=== PATIENT | male | born 2000 | race Caucasian/White ===

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

== ENCOUNTER 2023-02-09 16:25 | Emergency (ER) | payer MEDICAID, OTHER ==
[~2023-02-09] VITALS: Ht 177.8 cm; Wt 60.8 kg
[2023-02-09 16:25] VITALS: BP 121/76; TEMP 98.2; O2SAT 95
[~2023-02-09 16:25] MED LIST changes: +MELA5CAP2 PO; +MIRT-88 PO; +NALT50TA4 PO; +ZOLO100T PO
== END 2023-02-09 20:16 | disposition left against medical advice (07) ==
LOC: M ED 16:25
DX: K62.5 Hemorrhage of anus and rectum (principal); Z53.9 Procedure and treatment not carried out, unspecified reason

== ENCOUNTER 2023-09-04 06:55 | Emergency (ER) | payer OTHER ==
[~2023-09-04] VITALS: Ht 180.3 cm; Wt 61.0 kg
[~2023-09-04 06:55] MED LIST changes: -SALI0.6530; +SODI88SP
[2023-09-04 06:56] VITALS: BP 113/60; TEMP 99.9; O2SAT 100
[2023-09-04] MEDS: ONDANSETRON 4MG ORAL DISINTEGRATING TAB PO ONE (08:28)
== END 2023-09-04 09:20 | disposition left against medical advice (07) ==
LOC: M ED 06:55
DX: R05.9 Cough, unspecified (principal); B34.9 Viral infection, unspecified; F90.9 Attention-deficit hyperactivity disorder, unspecified type; F17.210 Nicotine dependence, cigarettes, uncomplicated; Z53.9 Procedure and treatment not carried out, unspecified reason

== ENCOUNTER 2024-02-14 00:45 | Emergency (ER) | payer OTHER ==
[~2024-02-14] VITALS: Ht 175.3 cm; Wt 61.4 kg
[~2024-02-14 00:45] MED LIST changes: +ONDA-282 PO; -ONDA4TAB6 PO
[2024-02-14 01:08] VITALS: BP 138/79; TEMP 97.5; O2SAT 98
[2024-02-14 01:18] LABS: HEMATOCRIT 44.1 % (42.0-52.0); HEMOGLOBIN 15.5 g/dl (13.5-17.5); MEAN CORPUSCULAR HEMOGLOBIN 30.2 pg (27.0-33.0); MEAN CORPUSCULAR HGB CONC 35.1 g/dl (32.0-36.5); PLATELET COUNT, AUTOMATED 306 10^3/uL (150-450); RED BLOOD COUNT 5.13 10^6/uL (4.30-6.10); WHITE BLOOD COUNT 8.3 10^3/uL (4.0-10.0)
[2024-02-14 01:42] LABS: ETHYL ALCOHOL (ETHANOL) < 0.003 % (0.000-0.010)
[2024-02-14 01:44] LABS: ALBUMIN 4.7 G/DL (3.2-5.2); ALKALINE PHOSPHATASE 56 U/L (46-116); ALT/SGPT 18 U/L (7.0-40); AST/SGOT 19 U/L (<34); BILIRUBIN,DIRECT 0.3 MG/DL (<0.4); BILIRUBIN,TOTAL 0.8 MG/DL (0.3-1.2); BLOOD UREA NITROGEN 14 MG/DL (9-23); CARBON DIOXIDE LEVEL 26 MMOL/L (20-31); CHLORIDE LEVEL 107 MMOL/L (98-107); CREATININE FOR GFR 0.92 MG/DL (0.70-1.30); GLOMERULAR FILTRATION RATE > 60.0 (>60); GLUCOSE, FASTING 101 MG/DL (60-100); POTASSIUM SERUM 4.1 MMOL/L (3.5-5.1); SALICYLATE LEVEL < 3.0 MG/DL (<30); SODIUM LEVEL 139 MMOL/L (136-145); TOTAL PROTEIN 7.7 G/DL (5.7-8.2)
[2024-02-14 01:55] LABS: AMPHETAMINES LEVEL URINE NEGATIVE (NEGATIVE)
[2024-02-14 01:56] LABS: THYROID STIMULATING HORMONE 4.686 uIU/ML (0.55-4.78)
[2024-02-14] MEDS ORDERED: HOME MED LIST COMPLETE! XX SCH (02:30)
[2024-02-14 03:11] LABS: BARBITURATES URINE NEGATIVE (NEGATIVE); BENZODIAZEPINES URINE NEGATIVE (NEGATIVE); COCAINE METABOLITE URINE NEGATIVE (NEGATIVE); METHADONE URINE NEGATIVE (NEGATIVE); OPIATES URINE NEGATIVE (NEGATIVE); PHENCYCLIDINE URINE NEGATIVE (NEGATIVE)
[2024-02-14 03:17] LABS: CANNABINOIDS URINE POSITIVE (NEGATIVE)
[2024-02-14] MEDS: hydrOXYzine 50 MG TAB PO STA (03:50)
== END 2024-02-14 07:34 | disposition home or self-care (01) ==
LOC: M ED 00:45
DX: F41.9 Anxiety disorder, unspecified (principal); F17.210 Nicotine dependence, cigarettes, uncomplicated

== ENCOUNTER 2024-02-24 14:09 | Emergency (ER) | payer OTHER ==
[~2024-02-24] VITALS: Ht 175.3 cm; Wt 58.4 kg
[2024-02-24 16:07] LABS: BASO # 0.1 10^3/uL (0.0-0.2); BASO % 0.8 % (0.0-1.0); EOS # 0.1 10^3/uL (0.0-0.5); EOS % 0.9 % (0.0-3.0); HEMATOCRIT 48.1 % (42.0-52.0); HEMOGLOBIN 16.8 g/dl (13.5-17.5); LYMPH # 1.5 10^3/uL (1.5-5.0); LYMPH % 16.6 % (24.0-44.0); MEAN CORPUSCULAR HEMOGLOBIN 30.3 pg (27.0-33.0); MEAN CORPUSCULAR HGB CONC 34.9 g/dl (32.0-36.5); MEAN CORPUSCULAR VOLUME 86.8 fl (80.0-96.0); MONO # 0.6 10^3/uL (0.0-0.8); MONO % 6.2 % (2.0-8.0); NEUTROPHILS % 75.3 % (36.0-66.0); PLATELET COUNT, AUTOMATED 328 10^3/uL (150-450); RED BLOOD COUNT 5.54 10^6/uL (4.30-6.10); WHITE BLOOD COUNT 9.3 10^3/uL (4.0-10.0)
[2024-02-24 16:29] LABS: BLOOD UREA NITROGEN 15 MG/DL (9-23); CALCIUM LEVEL 10.4 MG/DL (8.5-10.1); CARBON DIOXIDE LEVEL 29 MMOL/L (20-31); CHLORIDE LEVEL 106 MMOL/L (98-107); CK-MB VALUE MASS < 1.0 NG/ML (<3.6); CREATININE FOR GFR 0.88 MG/DL (0.70-1.30); GLOMERULAR FILTRATION RATE > 60.0 (>60); GLUCOSE, FASTING 85 MG/DL (60-100); MAGNESIUM LEVEL 2.1 MG/DL (1.8-2.4); POTASSIUM SERUM 4.4 MMOL/L (3.5-5.1); SODIUM LEVEL 139 MMOL/L (136-145)
[2024-02-24 16:33] LABS: FREE T4 1.34 NG/DL (0.89-1.76); THYROID STIMULATING HORMONE 1.079 uIU/ML (0.55-4.78)
[2024-02-24 16:35] LABS: CPK CREATINE PHOSPHOKINASE 85 U/L (46-171); MB/CK RELATIVE INDEX 1.17 (< OR =4)
[2024-02-24 17:16] VITALS: BP 122/69; TEMP 96.8; O2SAT 98
[2024-02-24] MEDS ORDERED: NAPR500T6 PO (17:18)
[2024-02-24] MEDS ORDERED: METH-1165 PO (17:18)
== END 2024-02-24 17:38 | disposition home or self-care (01) ==
LOC: M ED 14:09
DX: M62.838 Other muscle spasm (principal); S13.4XXA Sprain of ligaments of cervical spine, initial encounter; Y92.9 Unspecified place or not applicable; Y93.9 Activity, unspecified; Y99.9 Unspecified external cause status; R94.31 Abnormal electrocardiogram [ECG] [EKG]; F17.290 Nicotine dependence, other tobacco product, uncomplicated; Z79.899 Other long term (current) drug therapy

== ENCOUNTER 2024-03-13 01:52 | Emergency (ER) | payer OTHER ==
[~2024-03-13] VITALS: Ht 175.3 cm; Wt 60.0 kg
[~2024-03-13 01:52] MED LIST changes: +METH-1165 PO; +NAPR-1405 PO
[2024-03-13 01:54] VITALS: BP 134/76; TEMP 98.5; O2SAT 98
== END 2024-03-13 04:05 | disposition left against medical advice (07) ==
LOC: M ED 01:52
DX: Z53.21 Procedure and treatment not carried out due to patient leaving prior to being seen by health care provider (principal)